=== PATIENT | female | born 1950 | race African-American/Black ===

== ENCOUNTER 2018-10-30 19:01 | Emergency (ER) | payer MEDICARE, MEDICAID ==
[~2018-10-30] VITALS: Ht 154.9 cm; Wt 85.0 kg
[~2018-10-30 19:01] MED LIST: ALBU2.5V13 IH; LISI-186 PO
[2018-10-30 20:16] LABS: EOSINOPHILS % 2.5 % (0.0-5.0); HEMATOCRIT. 37.6 % (36.0-48.0); HEMOGLOBIN. 12.6 g/dL (12.0-16.0); LYMPHOCYTES % 23.5 % (20.0-50.0); MEAN CORPUSCULAR HEMOGLOBIN 26.7 pg (28.0-32.0); MEAN CORPUSCULAR VOLUME 79.5 fL (81.0-99.0); MONOCYTES % 9.9 % (2.0-8.0); NEUTROPHILS % 63.1 % (40.0-76.0); PLATELET 295 x1000/uL (130-400); RED BLOOD CELL COUNT 4.73 mill/uL (4.2-5.4); RED CELL DISTRIBUTION WIDTH 15.2 % (11.6-14.6)
[2018-10-30 20:19] LABS: CHLORIDE 101 mEq/L (98-107)
[2018-10-30 20:21] LABS: D-DIMER 0.46 mg/L FEU (<0.50); PROTHROMBIN TIME 10.5 sec (9.6-11.0)
[2018-10-30] MEDS ORDERED: IOHEXOL-350 100 ML BOTTLE ONE (21:45)
[2018-10-30 23:22] VITALS: BP 150/80
== END 2018-10-30 23:26 | disposition home or self-care (01) ==
LOC: ER 19:01
DX: C79.81 Secondary malignant neoplasm of breast (principal); M79.89 Other specified soft tissue disorders; J45.909 Unspecified asthma, uncomplicated; I10 Essential (primary) hypertension; Z90.710 Acquired absence of both cervix and uterus; Z86.73 Personal history of transient ischemic attack (TIA), and cerebral infarction without residual deficits; Z88.1 Allergy status to other antibiotic agents
CPT/HCPCS: 36415; 71045; 71275; 80053; 83605; 83880; 84484; 85025; 85379; 85610; 93005; 99284; Q9967

== ENCOUNTER → 2018-12-28 | Outpatient (CLI) | payer MEDICARE, MEDICAID | END | disposition home or self-care (01) | LOC: CARD 09:27 | DX: I27.20 Pulmonary hypertension, unspecified (principal); C50.919 Malignant neoplasm of unspecified site of unspecified female breast | CPT/HCPCS: 93306 ==